=== PATIENT | female | born 2000 | race Caucasian/White ===

== ENCOUNTER 2020-03-23 11:41 | Outpatient (REF) | payer OTHER, SELFPAY ==
[2020-03-23 13:54] LABS: Alanine Aminotransferase 16 U/L (0-31); Albumin Level 4.5 g/dL (3.5-5.0); Alkaline Phosphatase 61 U/L (39-117); Anion Gap 12 (12-20); Aspartate Amino Transferase 11 U/L (5-31); Bilirubin Total 0.8 mg/dL (0.0-1.0); Blood Urea Nitrogen 10 mg/dL (9-16); Carbon Dioxide 27 mmol/L (22-29); Chloride 106 mmol/L (96-108); Cholesterol 173 mg/dL; Estimated Glomerular Filt Rate > 60; Glucose Fasting 86 mg/dL (60-99); HDL Cholesterol 49 mg/dL; LDL Cholesterol Calculated 113 mg/dl; Potassium 4.8 mmol/L (3.3-5.1); Sodium 140 mmol/L (135-145); Total Protein 7.1 g/dL (6.5-8.0); Triglycerides 55 mg/dL
== END 2020-03-23 11:42 | disposition home or self-care (01) ==
LOC: HO.WFDLDS 11:41
PROVIDERS: Visit Provider Family Medicine
DX: Z00.00 Encounter for general adult medical examination without abnormal findings (principal)
CPT/HCPCS: 36415; 80053; 80061; 84443

== ENCOUNTER 2020-04-20 14:30 | Outpatient (REF) | payer OTHER, SELFPAY ==
[2020-04-21 09:15] LABS: CT PCR NOT DETECTED (Not Detect.); NG PCR NOT DETECTED (Not Detect.)
== END 2020-04-20 14:31 | disposition home or self-care (01) ==
LOC: HO.LAB 14:30
PROVIDERS: PCP Family Medicine; Visit Provider Advanced Practice Midwife
DX: Z01.411 Encounter for gynecological examination (general) (routine) with abnormal findings (principal); Z30.013 Encounter for initial prescription of injectable contraceptive; N92.1 Excessive and frequent menstruation with irregular cycle; Z20.2 Contact with and (suspected) exposure to infections with a predominantly sexual mode of transmission
CPT/HCPCS: 81025; 87491; 87591; 88142; 96372; J1050

== ENCOUNTER → 2020-07-13 13:04 | Outpatient (BNVA) | payer OTHER, SELFPAY | PROVIDERS: Visit Provider Advanced Practice Midwife | DX: Z30.9 Encounter for contraceptive management, unspecified (principal) | CPT/HCPCS: 96372; 99211 ==

== ENCOUNTER → 2020-08-24 13:34 | Outpatient (BNVA) | payer OTHER, SELFPAY | PROVIDERS: PCP Family Medicine; Visit Provider Surgery Vascular Surgery | DX: I73.9 Peripheral vascular disease, unspecified (principal) | CPT/HCPCS: 99202 ==

== ENCOUNTER → 2020-11-01 15:06 | Outpatient (BNVA) | payer OTHER, SELFPAY | PROVIDERS: PCP Family Medicine; Visit Provider Advanced Practice Midwife ==

== ENCOUNTER 2021-04-26 12:55 | Outpatient (REF) | payer OTHER, SELFPAY ==
[2021-04-26 15:05] LABS: HCG Quantitative 719 mIU/mL
[2021-04-27 11:36] LABS: CT PCR NOT DETECTED (Not Detect.); NG PCR NOT DETECTED (Not Detect.)
== END 2021-04-26 12:56 | disposition home or self-care (01) ==
LOC: HO.LAB 12:55
PROVIDERS: PCP Family Medicine; Visit Provider Advanced Practice Midwife
DX: Z01.419 Encounter for gynecological examination (general) (routine) without abnormal findings (principal); Z32.01 Encounter for pregnancy test, result positive; Z20.2 Contact with and (suspected) exposure to infections with a predominantly sexual mode of transmission; Z36.87 Encounter for antenatal screening for uncertain dates
CPT/HCPCS: 36415; 81025; 84702; 87491; 87591

== ENCOUNTER 2021-04-29 16:30 | Outpatient (REF) | payer OTHER, SELFPAY ==
[2021-04-29 17:20] LABS: HCG Quantitative 3103 mIU/mL
== END 2021-04-29 16:31 | disposition home or self-care (01) ==
LOC: HO.LAB 16:30
PROVIDERS: PCP Family Medicine; Visit Provider Advanced Practice Midwife
DX: O20.0 Threatened abortion (principal)
CPT/HCPCS: 36415; 84702

== ENCOUNTER 2021-05-06 09:01 | Outpatient (REF) | payer OTHER, SELFPAY ==
--- NOTE | ~2021-05-06 | US_ITS ---
EXAMINATION: OBSTETRICAL ULTRASOUND, FIRST TRIMESTER HISTORY: 21-year-old with positive test Uncertain dates LMP: 04/03/2021 (unsure) COMPARISON: None TECHNIQUE: Real time transabdominal imaging with color and M-mode Doppler. FINDINGS: A single, live IUP CRL of 3.3 mm c/w 6.0wks is noted. Heart Rate: 90 beats per minute. Both maternal ovaries are seen and appear normal. GESTATIONAL AGE: 1. GA from LMP: 4.5 wks 2. GA from AUA: 6.0 wks ESTIMATED DATE OF DELIVERY: 1. TANESHA from LMP: 01/08/2022 2. TANESHA from AUA: 12/30/2021 US/US OB <= 14 weeks fetus IMPRESSION: 1. Single, live IUP 2. CRL consistent with 6.0 weeks of gestation. 3. The best TANESHA is 12/30/2021 based on today's examination. 4. The heart rate is 90 bpm which can be normal given the very early gestation. Suggest a follow-up viability scan in approximately 1-2 weeks. Thank you very much for this referral. This note was generated with a voice recognition program. Please excuse any errors which may have been overlooked during my review of this note. Sometimes these errors may affect the content or meaning of a given sentence.
== END 2021-05-06 09:02 | disposition home or self-care (01) ==
LOC: HO.US 09:01
PROVIDERS: PCP Family Medicine; Visit Provider Advanced Practice Midwife
DX: O26.849 Uterine size-date discrepancy, unspecified trimester (principal)
CPT/HCPCS: 76801

== ENCOUNTER 2021-10-31 15:45 | Outpatient (REF) | payer OTHER, SELFPAY ==
[2021-11-01 12:59] LABS: Influenza A PCR NEGATIVE (Negative); Influenza B PCR NEGATIVE (Negative); Resp Syncy Virus RNA Qual PCR NEGATIVE (Negative); SARS COV2 PCR INHOUSE NEGATIVE (Negative)
== END 2021-10-31 15:46 | disposition home or self-care (01) ==
LOC: HO.LAB 15:45
PROVIDERS: Visit Provider Family Medicine
DX: Z20.822 Contact with and (suspected) exposure to COVID-19 (principal); B34.9 Viral infection, unspecified
CPT/HCPCS: 0241U

== ENCOUNTER 2022-09-14 11:43 | Outpatient (AMB) | payer OTHER, SELFPAY ==
--- NOTE | 2022-09-14 11:54 | A.OFFPC_ITS ---
Vital Signs 09/14/22 11:56 Height 5 ft 8 in Weight 212 lb BMI 32.2 BP 120/68 Blood Pressure Location Lt brachial Pulse 59 Pulse Source Pulse Oximeter Pulse Oximetry (%) 99 Oxygen Delivery Method Room Air Intake Visit Reasons: f/u anxiety/depression Intake Note: Patient is following up on axiety and depression today. Allergies No Known Allergies Allergy (Verified 09/14/22 11:58) Tobacco use date assessed: 09/14/22 Dental Screening Dental Screen Date: 09/14/22 Did you have a dental visit in the last 12 months?: Yes Did you have a dental problem in the last 6 months where you did not have access to dental care?: No Was dental information given to patient?: No HPI f/u anxiety/depression HPI Details 22 y/o female presents to f/u ADHD and anxiety/depression with borderline personality disorder. No known hx of bipolar disorder but had started aripiprazole for moderately severe anxiety/depression and pt had been doing well on this. Had made a referral to psychiatry. She reports Adderall 30mg has been working well for her. She denies any issues with sleep, appetite or increased anxiety. She does note however that she feels her anxiety does not feel controlled on her Abilify 20mg. She does note Abilify has been working for her depression. She states she has an appt. with a therapist but she had missed this. They have not called her back. [facility] Medical History Early stage of Elevated fasting blood sugar Encounter for screening for uncertain dates Surgical History History of hip surgery Hx of wisdom tooth extraction Family History Family/Other Mental health disorder Substance abuse Social History Household Members: Family Housing: Apartment Alcohol intake: current Patient Tobacco Use Status: Never used Tobacco e-Cigarette/Vaping Use: Currently Using Second Hand Smoke Exposure: No service: No Current occupational status: employed Current occupational exposures/hazards: No Sexual orientation: Straight/Heterosexual Gender identity: Female Cognitive needs: No Hearing needs: No Vision needs: No Female Reproductive History Menstrual Age of Menarche: 14 Questionnaire PHQ-9 Over the last 2 weeks, how often have you been bothered by any of the following problems? 1. Little interest or pleasure in doing things: several days 2. Feeling down, depressed, or hopeless: several days 3. Trouble falling or staying asleep, or sleeping too much: not at all 4. Feeling tired or having little energy: not at all 5. Poor appetite or overeating: not at all 6. Feeling bad about yourself - or that you are a failure or have let yourself or your family down: several days 7. Trouble concentrating on things, such as reading the newspaper or watching television: not at all 8. Moving or speaking so slowly that other people could have noticed. Or the opposite - being so fidgety or restless that you have been moving around a lot more than usual: several days 9. Thoughts that you would be better off or of hurting yourself in some way: not at all Total score: 4 Source: Developed by Drs. Edgard Dorado, Teetee Salas, Atif Randolph and colleagues, with an educational sylvia from [employer]. Thrive Questionnaire Date Thrive assessed: 03/06/22 PREMA-7 AMB Questionnaire PREMA-7 Date PREMA - 7 assessed: 03/06/22 Feeling nervous, anxious, or on edge: 3 = Nearly every day Not being able to stop or control worryin = Nearly every day Worrying too much about different things: 3 = Nearly every day Trouble relaxin = Nearly every day Being so restless that it is hard to sit still: 3 = Nearly every day Becoming easily annoyed or irritable: 3 = Nearly every day Feeling afraid as if something awful might happen: 1 = Several days Total PREMA-7 score (0-4 normal; 5-9 mild; 10-14 moderate; 15-21 severe): 19 Source: Developed by Drs. Edgard Dorado, Teetee Salas, Atif Randolph and colleagues, with an educational sylvia from [employer]. Review of Systems Psych Reports anxiety and Reports depression Physical exam (Primary Care) Vital Signs: Last Vital Signs Pulse 59 09/14/22 11:56 BP 120/68 09/14/22 11:56 Pulse Ox 99 09/14/22 11:56 Oxygen Delivery Method Room Air 09/14/22 11:56 BMI result Body Mass Index 32.2 Tobacco/Smoking Status: Tobacco use Status Tobacco use date assessed 09/14/22 09/14/22 12:06 Patient Tobacco Use Status Never used Tobacco 09/14/22 12:06 e-Cigarette/Vaping Use Currently Using 09/14/22 12:06 PHQ-9: PHQ-9 Score PHQ-9: Total score 4 09/14/22 12:47 Thrive Assessment: Date of Thrive Assessment Date Thrive assessed 03/06/22 09/14/22 12:06 Assessment and Plan Assessment & Plan (1) Anxiety with depression: Code(s): F41.8 - Other specified anxiety disorders Plan: Worsened Anxiety on Abilify Missed Therapist Appt - Will ask Nurse Shakir to help her get another appt (2) ADHD (attention deficit hyperactivity disorder): Code(s): F90.9 - Attention-deficit hyperactivity disorder, unspecified type Plan: Patient had been off her medications for some time and we restarted her at a lower dose; 30 mg daily rather than 50 mg daily. She notes that she is currently well controlled on this dose and has no appetite, sleep or anxiety issues from this medication and dose. Continue current medication regimen (3) Borderline personality disorder: Code(s): F60.3 - Borderline personality disorder Plan: Had referred patient to Psychiatry and therapy. She currently has neither Asking nurse navigator to help with a therapist. Will make direct referral to Psychiatry again. Orders: Referrals Nurse Navigator Referral F41.8 - Other specified anxiety disorders, F60.3 - Borderline personality disorder Medications: New buspirone 5 mg PO BID 60 tabs 0RF 30 days Refilled dextroamphetamine-amphetamine 15 mg ER (Adderall XR) Partial Fill upon patient request. 30 mg (2 x 15 mg) PO QAM 60 caps 0RF 30 days aripiprazole (Abilify) 20 mg PO BEDTIME 30 tabs 2RF 30 days Coding Level of Care Code Est Pt Level 3 (37885) Diagnoses Anxiety with depression F41.8 ADHD (attention deficit hyperactivity disorder) F90.9 Borderline personality disorder F60.3
[2022-09-14 11:56] VITALS: BP 120/68; PULSE 59; O2SAT 99; BMI 32.2
== END 2022-09-14 13:02 | disposition home or self-care (01) ==
PROVIDERS: PCP Family Medicine; Visit Provider Family Medicine
DX: F41.8 Other specified anxiety disorders (principal); F90.9 Attention-deficit hyperactivity disorder, unspecified type; F60.3 Borderline personality disorder
CPT/HCPCS: 99213

== ENCOUNTER → 2023-05-17 15:34 | Outpatient (AMB) | payer OTHER, SELFPAY ==
[2023-05-17 15:45] VITALS: BP 122/74; PULSE 56; O2SAT 98; BMI 34.2
--- NOTE | 2023-05-17 15:45 | A.OFFPC_ITS ---
Vital Signs 05/17/23 15:45 Height 5 ft 8 in Weight 225 lb BMI 34.2 BP 122/74 Blood Pressure Location Lt brachial Position Sitting Pulse 56 Pulse Source Pulse Oximeter Pulse Oximetry (%) 98 Oxygen Delivery Method Room Air Intake Visit Reasons: medication follow up Intake Note: Patient is here with follow up for med refills, on Adderall, Buspirone, and Abilify. Allergies No Known Allergies Allergy (Verified 09/14/22 11:58) Medication List - Last Reconciled 05/17/23 by Martínez Hernandez MD albuterol sulfate 90 mcg/actuation (Ventolin HFA) 1 inh inhalation QID PRN 30 days aripiprazole (Abilify) 20 mg PO BEDTIME 30 days buspirone 5 mg PO BID 30 days dextroamphetamine-amphetamine 15 mg ER (Adderall XR) 30 mg (2 x 15 mg) PO QAM 30 days Tobacco use date assessed: 05/17/23 Dental Screening Dental Screen Date: 05/17/23 Did you have a dental visit in the last 12 months?: No Did you have a dental problem in the last 6 months where you did not have access to dental care?: No Was dental information given to patient?: Yes HPI medication follow up HPI Details Pt presents to f/u anxiety and depression. Had been taking Abilify which has helped significantly with depression but had still been having worsened anxiety. Had started her on buspirone. Pt scores significantly high on her anxiety/depression questionnaires. PHQ-9 24 and PREMA-7 21 today. She denies any SI/HI. She notes she had lost her insurance for awhile and had not been on her medication regimen. She had recently just gotten insurance back recently - she does not have a therapist right now. She notes she had just started a new job which should help her more financially. She reports her mother had been diagnosed with a blood clotting disorder. [facility] Medical History Early stage of Encounter for screening for uncertain dates Elevated fasting blood sugar Surgical History Hx of wisdom tooth extraction History of hip surgery Family History Family/Other Mental health disorder Substance abuse Social History Household Members: Family Housing: Apartment Alcohol intake: current Patient Tobacco Use Status: Never used Tobacco e-Cigarette/Vaping Use: Currently Using Second Hand Smoke Exposure: No service: No Current occupational status: employed Current occupational exposures/hazards: No Sexual orientation: Straight/Heterosexual Gender identity: Female Cognitive needs: No Hearing needs: No Vision needs: No Female Reproductive History Menstrual Age of Menarche: 14 Questionnaire PHQ-9 Over the last 2 weeks, how often have you been bothered by any of the following problems? 1. Little interest or pleasure in doing things: nearly every day 2. Feeling down, depressed, or hopeless: nearly every day 3. Trouble falling or staying asleep, or sleeping too much: nearly every day 4. Feeling tired or having little energy: nearly every day 5. Poor appetite or overeating: nearly every day 6. Feeling bad about yourself - or that you are a failure or have let yourself or your family down: nearly every day 7. Trouble concentrating on things, such as reading the newspaper or watching television: nearly every day 8. Moving or speaking so slowly that other people could have noticed. Or the opposite - being so fidgety or restless that you have been moving around a lot more than usual: nearly every day 9. Thoughts that you would be better off or of hurting yourself in some way: not at all Total score: 24 Depression Screening Interpretation: Positive Depression Screening Done: Yes 45661 - PHQ-9 Billing: Yes Source: Developed by Drs. Edgard Dorado, Teetee Salas, Atif Randolph and colleagues, with an educational sylvia from [employer]. Thrive Questionnaire Date Thrive assessed: 05/17/23 I am a: Patient What is your living situation today?: I have a steady place to live Within the past 12 months, did the food you bought not last and you didn't have the money to get more?: Often true Within the past 12 months, did you worry whether your food would run out before you got money to buy more?: Often true Do you have trouble paying for medicines?: No Do you have trouble getting transportation to medical appointments?: No Do you have trouble paying your heating and electricity bill?: No Do you have trouble taking care of your child, family member or friend?: No Do you have trouble with day-to-day activities such as bathing, preparing meals, shopping, managing finances, etc.?: No Are you currently unemployed and looking for a job?: No Are you interested in more education?: No THRIVE Score: 2 AUDIT C Alcohol Use Questionnaire (AUDIT-C) 1. How often do you have a drink containing alcohol?: 4 or more times a week 2. How many drinks containing alcohol do you have on a typical day when you are drinking?: 5 or 6 3. How often do you have six or more drinks on one occasion?: Never Total Score: 6 PREMA-7 AMB Questionnaire PREMA-7 Date PREMA - 7 assessed: 05/17/23 Feeling nervous, anxious, or on edge: 3 = Nearly every day Not being able to stop or control worryin = Nearly every day Worrying too much about different things: 3 = Nearly every day Trouble relaxin = Nearly every day Being so restless that it is hard to sit still: 3 = Nearly every day Becoming easily annoyed or irritable: 3 = Nearly every day Feeling afraid as if something awful might happen: 3 = Nearly every day Total PREMA-7 score (0-4 normal; 5-9 mild; 10-14 moderate; 15-21 severe): 21 Source: Developed by Drs. Edgard Dorado, Teetee Salas, Atif Randolph and colleagues, with an educational sylvia from [employer]. PREMA-7 Assessment Billing PREMA-7 Assessment Tool: PREMA-7 Assessment 54413 Review of Systems Const Denies chills, Denies fatigue, Denies fever(s), Denies headache(s) and Denies weakness ENT Denies dizziness and Denies headache(s) Card Denies chest pain, Denies lightheadedness, Denies dyspnea and Denies other (Palpitations) Resp Denies cough, Denies dyspnea, Denies wheezing and Denies other ( shortness of breath) Musc Denies numbness and Denies tingling Neuro Denies dizziness, Denies headache(s), Denies numbness, Denies tingling, Denies paresthesias and Denies weakness Psych Denies anxiety and Denies depression Endo Denies fatigue Aller/Immun Denies wheezing Physical exam (Primary Care) Vital Signs: Last Vital Signs Pulse 56 05/17/23 15:45 BP 122/74 05/17/23 15:45 Pulse Ox 98 05/17/23 15:45 Oxygen Delivery Method Room Air 05/17/23 15:45 BMI result Body Mass Index 34.2 Tobacco/Smoking Status: Tobacco use Status Tobacco use date assessed 05/17/23 05/17/23 15:59 Patient Tobacco Use Status Never used Tobacco 05/17/23 15:59 e-Cigarette/Vaping Use Currently Using 05/17/23 15:59 PHQ-9: PHQ-9 Score PHQ-9: Total score 05/17/23 15:59 Depression Screening Interpretation: Positive Thrive Assessment: Date of Thrive Assessment Date Thrive assessed 05/17/23 05/17/23 15:59 Const General: no acute distress and well developed Nutritional Appearance: well nourished Orientation/consciousness: patient oriented x3 HENMT Head: Yes normocephalic and Yes atraumatic Eyes General: appearance normal, both eyes and all related structures Pupils: Equal, round and reactive pupils present EOM: EOMs intact bilaterally Resp Effort & Inspection: normal respiratory effort Auscultation: clear to auscultation bilaterally Cardio Rate: regular rate Rhythm: regular rhythm Heart sounds: S1 normal heart sound present, S2 normal heart sound present, no gallops, no murmurs and no rubs Neuro General: patient oriented x3 and gait normal Cranial nerves: Yes Equal, round and reactive pupils present Psych Affect: normal affect Assessment and Plan Assessment & Plan (1) Anxiety with depression: Code(s): F41.8 - Other specified anxiety disorders Plan: Significant?anxiety?and?depression She?has?been?off?of?her?medications?due?to?lack?of?insurance?but?now?has?insuran ce?again. Will?resume?buspirone?and?Abilify Will?refer?her?to?the?nurse?navigator?for?referral?to?a?therapist?and?also?to?ev aluate?for?services?due?to?housing?instability?and?financial?difficulties. (2) Family history of factor V Leiden mutation: Code(s): Z83.2 - Family history of diseases of the blood and blood-forming organs and certain disorders involving the immune mechanism Plan: Mom?diagnosed?with?factor?5?Leiden?mutation. Will?check?this?for?patient?as?well.??If?positive?will?refer (3) ADHD (attention deficit hyperactivity disorder): Code(s): F90.9 - Attention-deficit hyperactivity disorder, unspecified type Plan: Resume?Adderall Will?follow-up?at?next?visit (4) Borderline personality disorder: Code(s): F60.3 - Borderline personality disorder Plan: As?above,?resuming?her?Abilify (5) Smoking: Code(s): F17.200 - Nicotine dependence, unspecified, uncomplicated Plan: Patient?recently?quit?smoking?and?I?encouraged?abstinence Orders: Orders Comprehensive [place]. Panel Fast Today Z00.00 - Encounter for general adult medical examination without abnormal findings Complete Blood Count Auto Diff Today Z00.00 - Encounter for general adult medical examination without abnormal findings UA and rflx microscopic Today Z00.00 - Encounter for general adult medical examination without abnormal findings Lipid Panel Today Z00.00 - Encounter for general adult medical examination without abnormal findings Microalbumin, Random (w Creat) Today I10 - Essential (primary) hypertension TSH reflex Free T4 Today Z00.00 - Encounter for general adult medical examination without abnormal findings Factor V Leiden Today Z83.2 - Family history of diseases of the blood and blood-forming organs and certain disorders involving the immune mechanism Referrals Nurse Navigator Referral F41.8 - Other specified anxiety disorders, Z59.819 - Housing instability, housed unspecified Medications: Refilled dextroamphetamine-amphetamine 15 mg ER (Adderall XR) Partial Fill upon patient request. 30 mg (2 x 15 mg) PO QAM 30 days 60 caps 0RF albuterol sulfate 90 mcg/actuation (Ventolin HFA) 1 inh inhalation QID 30 days PRN 8.5 grams 4RF shortness of breath or wheezing buspirone 5 mg PO BID 30 days 60 tabs 0RF aripiprazole (Abilify) 20 mg PO BEDTIME 30 days 30 tabs 2RF Coding Level of Care Code Est Pt Level 4 (84345) Diagnoses Anxiety with depression F41.8 Family history of factor V Leiden mutation Z83.2 ADHD (attention deficit hyperactivity disorder) F90.9 Borderline personality disorder F60.3 Smoking F17.200 Additional Codes PREMA-7 Assessment Billing - PREMA-7 Assessment Tool: PREMA-7 Assessment [id number] ([id number])
== END ==
PROVIDERS: PCP Family Medicine; Visit Provider Family Medicine
DX: F90.9 Attention-deficit hyperactivity disorder, unspecified type (principal); F41.8 Other specified anxiety disorders; Z83.2 Family history of diseases of the blood and blood-forming organs and certain disorders involving the immune mechanism; F60.3 Borderline personality disorder; F17.200 Nicotine dependence, unspecified, uncomplicated
CPT/HCPCS: 96127; 99214

== ENCOUNTER 2023-07-13 12:49 | Outpatient (AMB) | payer OTHER, SELFPAY ==
--- NOTE | 2023-07-13 12:57 | MHC.PC.OV ---
Vital Signs 07/13/23 13:00 Height 5 ft 8 in Weight 215 lb 2 oz BMI 32.7 BP 118/80 Blood Pressure Location Rt brachial Pulse 85 Pulse Source Pulse Oximeter Pulse Oximetry (%) 97 Oxygen Delivery Method Room Air Intake Visit Reasons: CPE Follow up labs Intake Note: Patient is here for her physical, and stopped taling her antipsycotics because they were never filled. Allergies No Known Allergies Allergy (Verified 07/13/23 13:01) Medication List - Last Reconciled 07/13/23 by Martínez Hernandez MD albuterol sulfate 90 mcg/actuation (Ventolin HFA) 1 inh inhalation QID PRN 30 days buspirone 5 mg PO BID 30 days Tobacco use date assessed: 07/13/23 Dental Screening Dental Screen Date: 05/17/23 HPI CPE Follow up labs HPI Details 23 y/o female presents for a CPE with f/u labs and health maintenance. Hx of borderline personality disorder and anxiety/depression. No recent labs to review. She states she has not been taking her Adderall as insurance did not approve the 15mg. Pt reports ongoing back flare-ups and states she does have degenerative disc disease. HPI Comments History of Present Illness Details Documentation assistance for Martínez Hernandez MD, was provided by Garo Tai, Director Of Officiating on 07/13/2023 at 1:20 PM EST. I, Dr. Hernandez, have read, observed, and verified documentation. [facility] Medical History Early stage of Encounter for screening for uncertain dates Elevated fasting blood sugar Surgical History Hx of wisdom tooth extraction History of hip surgery Family History Family/Other Mental health disorder Substance abuse Social History Household Members: Family Housing: Apartment Alcohol intake: current Patient Tobacco Use Status: Never used Tobacco e-Cigarette/Vaping Use: Currently Using Second Hand Smoke Exposure: No service: No Current occupational status: employed Current occupational exposures/hazards: No Sexual orientation: Straight/Heterosexual Gender identity: Female Cognitive needs: No Hearing needs: No Vision needs: No Female Reproductive History Menstrual Age of Menarche: 14 Questionnaire Thrive Questionnaire Date Thrive assessed: 05/17/23 PREMA-7 AMB Questionnaire PREMA-7 Date PREMA - 7 assessed: 05/17/23 Source: Developed by Drs. Edgard Dorado, Teetee Salas, Atif Randolph and colleagues, with an educational sylvia from [employer]. Review of Systems Const Denies chills, Denies fatigue, Denies fever(s), Denies headache(s) and Denies weakness Eyes Denies change in vision ENT Denies dizziness, Denies headache(s), Denies hearing loss, Denies nasal congestion, Denies sinus pain, Denies sinus pressure and Denies sore throat Card Denies chest pain, Denies lightheadedness, Denies dyspnea and Denies other (palpitations) Resp Denies cough, Denies dyspnea and Denies wheezing GI Denies abdominal pain, Denies melena, Denies hematochezia, Denies change in bowel habits, Denies dyspepsia and Denies nausea Denies hematuria and Denies dysuria Musc Denies abnormal gait, Denies myalgias, Denies arthralgias, Denies numbness and Denies tingling Skin/Breast Denies rash, Denies unusual bruising and Denies wounds Neuro Denies abnormal gait, Denies dizziness, Denies headache(s), Denies memory loss, Denies numbness, Denies Sensory deficit (Neuro), Denies tingling and Denies weakness Psych Reports anxiety, Reports depression and Denies memory loss Endo Denies cold intolerance, Denies fatigue, Denies heat intolerance, Denies polydipsia and Denies polyuria Jeronimo/Lymph Denies easy bleeding and Denies easy bruising Aller/Immun Denies wheezing Physical exam (Primary Care) Vital Signs: Last Vital Signs Pulse 85 07/13/23 13:00 BP 118/8 L 07/13/23 13:00 Pulse Ox 97 07/13/23 13:00 Oxygen Delivery Method Room Air 07/13/23 13:00 BMI result Body Mass Index 32.7 Tobacco/Smoking Status: Tobacco use Status Tobacco use date assessed 07/13/23 07/13/23 13:02 Patient Tobacco Use Status Never used Tobacco 07/13/23 12:58 e-Cigarette/Vaping Use Currently Using 07/13/23 12:58 Thrive Assessment: Date of Thrive Assessment Date Thrive assessed 05/17/23 07/13/23 12:58 Const General: no acute distress, well developed, alert and awake Nutritional Appearance: well nourished Orientation/consciousness: patient oriented x3 [facility] Head: Yes normocephalic and Yes atraumatic Ears: hearing grossly normal bilaterally and TM's normal bilaterally General nose exam: Normal external nose present and Normal nares present Mouth: Normal oral and palatal mucosa present and moist mucous membranes Teeth and gingiva: dentition normal Throat: Yes posterior oropharynx normal Eyes General: appearance normal, both eyes and all related structures Pupils: Equal, round and reactive pupils present and Pupil accommodation reflex normal EOM: EOMs intact bilaterally Neck Neck: Yes normal visual inspection, Yes no lymphadenopathy and Yes trachea midline Thyroid: Thyroid normal Carotids: no bruits Lymphatic: no lymphadenopathy noted Chest Chest palpation & inspection: normal inspection of the chest Resp Effort & Inspection: normal respiratory effort Auscultation: clear to auscultation bilaterally Cardio Rate: regular rate Rhythm: regular rhythm Heart sounds: S1 normal heart sound present, S2 normal heart sound present, no gallops, no murmurs and no rubs Bruits: no abdominal aortic bruits and no carotid bruits GI Palpation (GI): No Abdominal aortic bruit present, Soft to palpation, nontender, No hepatosplenomegaly present and No Rebound tenderness present Auscultation: normal bowel sounds General: Yes no CVA tenderness Back/Spine/Pelvis Back: no CVA tenderness Cervical Spine: cervical ROM normal and No Cervical spine tenderness Thoracic/Lumbar Spine: thoraco-lumbar ROM normal, No pain with thoraco-lumbar ROM, No thoracic spinal tenderness and No lumbar spinal tenderness Skin Lesions: no lesions Rashes: no rashes Trauma: no lacerations or abrasions Wounds: no wounds Nails: normal Neuro General: patient oriented x3 Cranial nerves: Yes Equal, round and reactive pupils present Cognition (Neuro): normal cognition Gait exam (Neuro): Normal gait present Motor exam (neuro): 5/5 motor strength present throughout Sensory Exam: No Sensory deficit (Neuro) Deep tendon reflexes (DTR's): Right patellar reflex intensity grade: 2+ and Left patellar reflex intensity grade: 2+ Extrem General: Yes normal to inspection and No edema Psych Appearance: grossly normal Affect: No normal affect (irritable affect) Attitude: cooperative Thought process: Normal thought process present Assessment and Plan Assessment & Plan (1) Adult general medical exam: Code(s): Z00.00 - Encounter for general adult medical examination without abnormal findings (2) ADHD (attention deficit hyperactivity disorder): Code(s): F90.9 - Attention-deficit hyperactivity disorder, unspecified type Plan: Had?been?unable?to?get?Adderall?due?to?insurance?not?paying?for 15?mg?x2?per?day Switched?to?Adderall?XR?30?mg?daily (3) Degenerative disc disease: Plan: Significant?back?pain?and?history?of?degenerative?disc Has?used?steroids?in?the?past?which?have?helped?significantly. Will?refer?her?to?physiatry?to?consider?injection?therapy. Can?also?start?physical?therapy?at?[facility]?per?employment security officer?order (4) Sleep apnea: Code(s): G47.30 - Sleep apnea, unspecified Plan: Referred?to?Sleep?Medicine (5) Anxiety with depression: Code(s): F41.8 - Other specified anxiety disorders Plan: Ongoing?anxiety?and?depression?in?patient?with?bipolar?disorder She?felt?that?the?Abilify?helped?her?but?made?her?feel?jittery Switch?to?Seroque Continue?buspirone?l (6) Screening for cervical cancer: Code(s): Z12.4 - Encounter for screening for malignant neoplasm of cervix Plan: [facility]and[facility]?have?called?her?to?schedule?her?next?Pap?smear Follow-up?as?recommended (7) Borderline personality disorder: Code(s): F60.3 - Borderline personality disorder Plan: As?above,?starting?Seroquel (8) Raynaud phenomenon: Code(s): I73.00 - Raynaud's syndrome without gangrene Plan: Hydrate?well Keep?hands?and?feet?warm Orders: Referrals Physiatry Referral M54.9 - Dorsalgia, unspecified Sleep Medicine Referral G47.30 - Sleep apnea, unspecified Medications: New quetiapine (Seroquel) 50 mg PO BEDTIME 30 days 30 tabs 1RF dextroamphetamine-amphetamine 30 mg ER (Adderall XR) MassPat Verified. Partial Fill upon patient request. 30 mg PO QAM 30 days 30 caps 0RF F90.9 - Attention-deficit hyperactivity disorder, unspecified type Coding Level of Care Code Est Pt Level 3 (78347) Est Pt Prev Care 18-39y(55280) Diagnoses Adult general medical exam Z00.00 ADHD (attention deficit hyperactivity disorder) F90.9 Degenerative disc disease Sleep apnea G47.30 Anxiety with depression F41.8 Screening for cervical cancer Z12.4 Borderline personality disorder F60.3 Raynaud phenomenon I73.00
[2023-07-13 13:00] VITALS: BP 118/80; PULSE 85; O2SAT 97; BMI 32.7
== END 2023-07-13 13:46 | disposition home or self-care (01) ==
PROVIDERS: PCP Family Medicine; Visit Provider Family Medicine
DX: Z00.00 Encounter for general adult medical examination without abnormal findings (principal); F60.3 Borderline personality disorder; F90.9 Attention-deficit hyperactivity disorder, unspecified type; G47.30 Sleep apnea, unspecified; F41.8 Other specified anxiety disorders; I73.00 Raynaud's syndrome without gangrene
CPT/HCPCS: 99213; 99395

== ENCOUNTER 2023-12-07 16:08 | Outpatient (AMB) | payer OTHER, SELFPAY ==
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
[2023-12-07 16:13] VITALS: BP 105/55; PULSE 104; RESP 16; TEMP 36.6; O2SAT 97; BMI 30.2
== END 2023-12-07 16:39 | disposition home or self-care (01) ==
LOC: HO.HMCFM 16:09
PROVIDERS: PCP Family Medicine; Visit Provider Family Medicine
DX: F41.8 Other specified anxiety disorders (principal); F60.3 Borderline personality disorder; F90.9 Attention-deficit hyperactivity disorder, unspecified type; S06.0XAA Concussion with loss of consciousness status unknown, initial encounter; R51.9 Headache, unspecified; Z91.410 Personal history of adult physical and sexual abuse

== ENCOUNTER → 2023-12-07 16:08 | Outpatient (BNVA) | payer OTHER, SELFPAY | PROVIDERS: PCP Family Medicine; Visit Provider Family Medicine | DX: F41.8 Other specified anxiety disorders (principal); F60.3 Borderline personality disorder; F90.9 Attention-deficit hyperactivity disorder, unspecified type; R51.9 Headache, unspecified; S06.0XAA Concussion with loss of consciousness status unknown, initial encounter; Z91.410 Personal history of adult physical and sexual abuse | CPT/HCPCS: 96127; 99212 ==

== ENCOUNTER 2023-12-18 10:56 | Outpatient (REF) | payer OTHER, SELFPAY ==
[2023-12-18 14:12] LABS: Appearance Urine Cloudy; Color Urine Dark Yellow; Glucose Urine UA Negative (Negative); Leukocyte Esterase Urine Small (1+) (Negative); Nitrite Urine Negative (Negative); PH 6.5 (5.0-9.0); Specific Gravity - Urine 1.025 (1.005-1.025); UMIC TRIGGER UA YES; Urine Blood Negative (Negative); Urine Ketones Negative (Negative); Urine Protein Trace mg/dL (Neg-Trace)
[2023-12-18 14:16] LABS: MANUAL DIFF FLAG NO
[2023-12-18 14:20] LABS: Bacteria Urine 4+ (None Seen); Squamous Epithelial Cell Urine >20 /HPF (0-2); WBC Urine 21-50 /HPF (0-5)
[2023-12-18 14:24] LABS: Basophils Percent Auto 0.6 % (0-2); Eosinophils Absolute Auto 0.3 X10*3/uL (0.0-0.4); Eosinophils Percent Auto 3.7 % (0-4); Hematocrit 40.5 % (37.0-47.0); Hemoglobin 13.9 g/dl (12.0-16.0); Imm Gran Abs Auto 0.01 X10*3/uL (0.00-0.03); Imm Gran Pct Auto 0.1 % (0.0-0.4); Lymphocytes Percent Auto 44.5 % (20-40); Mean Corpuscular HGB Conc 34.3 g/dl (31.0-35.0); Mean Corpuscular Hemoglobin 31.6 pg (27.0-33.0); Mean Platelet Volume 9.5 fL (9.4-12.3); Monocytes Absolute Auto 0.4 X10*3/uL (0.1-1.2); Monocytes Percent Auto 5.2 % (2-11); Neutrophils Absolute Auto 3.1 x10*3/uL (2.0-8.3); Neutrophils Percent Auto 45.9 % (45-73); Platelet Count 299 X10*3/uL (160-400); Red Cell Distribution Width 12.6 % (11.0-16.0); White Blood Count 6.7 X10*3/uL (4.8-10.8)
[2023-12-18 15:07] LABS: Alanine Aminotransferase 28 U/L (0-31); Albumin Level 4.2 g/dL (3.5-5.0); Alkaline Phosphatase 48 U/L (39-117); Anion Gap 12 (12-20); Aspartate Amino Transferase 26 U/L (5-31); Bilirubin Total 0.8 mg/dL (0.0-1.0); Blood Urea Nitrogen 6 mg/dL (9-16); Calcium 9.4 mg/dL (8.4-10.2); Carbon Dioxide 21 mmol/L (22-29); Chloride 110 mmol/L (96-108); Cholesterol 182 mg/dL (<200); Estimated Glomerular Filt Rate > 60; Glucose Fasting 95 mg/dL (60-99); HDL Cholesterol 44 mg/dL (>40); LDL Cholesterol Calculated 117 mg/dL (<100); Potassium 4.1 mmol/L (3.3-5.1); Sodium 139 mmol/L (135-145); TSH reflex Free T4 0.88 uIU/mL (0.32-4.0); Total Protein 7.3 g/dL (6.5-8.0); Triglycerides 106 mg/dL (<150); Vitamin D 25-OH Total 28.6 ng/mL (>30)
[2023-12-18 15:09] LABS: Creatinine Urine 221.88 mg/dL; Microalbum/Creatinine Ratio Ur 5.4 ug/mg cr (<30)
[2023-12-18 15:11] LABS: Erythrocyte Sedimentation Rate 12 MM/HR (0-20)
[2023-12-18 15:13] LABS: Folate 5.3 ng/mL (> or = 4.0); Vitamin B12 345 pg/mL (200-900)
[2023-12-26 18:23] LABS: Factor V Leiden POSITIVE
== END 2023-12-18 10:57 | disposition home or self-care (01) ==
LOC: HO.WFDLDS 10:56
PROVIDERS: Visit Provider Family Medicine
DX: Z00.00 Encounter for general adult medical examination without abnormal findings (principal); I10 Essential (primary) hypertension; Z83.2 Family history of diseases of the blood and blood-forming organs and certain disorders involving the immune mechanism; G47.30 Sleep apnea, unspecified; E53.8 Deficiency of other specified B group vitamins; E55.9 Vitamin D deficiency, unspecified; M54.9 Dorsalgia, unspecified
CPT/HCPCS: 36415; 80053; 80061; 81001; 81241; 82043; 82306; 82570; 82607; 82746; 84443; 85025; 85652

== ENCOUNTER 2024-01-11 09:08 | Outpatient (AMB) | payer OTHER, SELFPAY ==
--- NOTE | 2024-01-11 09:05 | MHC.PC.OV ---
Intake Visit Reasons: f/u labs via telemedicine Intake Note: lab review Allergies No Known Allergies Allergy (Verified 01/11/24 09:05) Medication List - Last Reconciled 01/11/24 by Martínez Hernandez MD Adderall XR 30 mg (dextroamphetamine-amphetamine) 30 mg PO QAM 30 days NS Tobacco use date assessed: 07/13/23 Dental Screening Dental Screen Date: 05/17/23 HPI f/u labs via telemedicine HPI Details 23 y/o female presents to f/u labs via telemedicine. FHx of factor 5 leiden. Checking sed rate due to chronic back pain. Had referred her back to physiatry for back pain. [place] [facility] [place] for multiple psychiatric issues. Labs drawn 12/18/23. Reviewed labs with pt. Triglycerides 106. TC 182. LDL 117. HDL 44. Vitamin D low at 28.6. 4+ urine bacteria seen. Reports she had BV and had a prescription from her ObGyn but she notes this had . She denies any urinary symptoms. She reports she has been having difficulty obtaining her adderall. [facility] Medical History Early stage of Encounter for screening for uncertain dates Elevated fasting blood sugar Surgical History Hx of wisdom tooth extraction History of hip surgery Family History Family/Other Mental health disorder Substance abuse Social History Household Members: Family Housing: Apartment Alcohol intake: current Patient Tobacco Use Status: Never used Tobacco e-Cigarette/Vaping Use: Currently Using Second Hand Smoke Exposure: No service: No Current occupational status: employed Current occupational exposures/hazards: No Sexual orientation: Straight/Heterosexual Gender identity: Female Cognitive needs: No Hearing needs: No Vision needs: No Female Reproductive History Menstrual Age of Menarche: 14 Questionnaire Thrive Questionnaire Date Thrive assessed: 05/17/23 PREMA-7 AMB Questionnaire PREMA-7 Date PREMA - 7 assessed: 05/17/23 Source: Developed by Drs. Edgard Dorado, Teetee B.W. Atif Salas and colleagues, with an educational sylvia from [employer]. Physical exam (Primary Care) Tobacco/Smoking Status: Tobacco use Status Tobacco use date assessed 07/13/23 01/11/24 09:07 Patient Tobacco Use Status Never used Tobacco 01/11/24 09:07 e-Cigarette/Vaping Use Currently Using 01/11/24 09:07 Thrive Assessment: Date of Thrive Assessment Date Thrive assessed 05/17/23 01/11/24 09:07 Telehealth Telehealth Telehealth Platform: Telephone Location of provider rendering services: practice address Location of patient: address on file Patient Identification confirmed using: Name, : Yes Telehealth method: voice only Patient verbally consented to treatment: Yes Patient verbally consented to billing insurance company: Yes Patient informed of any privacy concerns related to visit: Yes Minutes spent on Phone/Video with Pt.: 10 Coding Level of Care Code Tele Est Pt Level 2 (06168) Diagnoses Heterozygous factor V Leiden mutation D68.51 Elevated LDL cholesterol level E78.00 Bacteria in urine R82.71 ADHD (attention deficit hyperactivity disorder) F90.9 Assessment & Plan Assessment & Plan (1) Heterozygous factor V Leiden mutation: Code(s): D68.51 - Activated protein C resistance Category: Medical Plan: Testing shows that she is heterozygous for the Factor V Leiden variant in the Factor V gene, giving her a 3-8-fold increased risk for venous thrombosis (blood clots). I recommend that if she is smoking she discontinue this and I recommend she avoid unneccesary estrogen/hormonal treatments. I am referring her to Hematology-Oncology. In addition, other family members may also be carriers of the variant and similarly at risk so they should consider genetic counseling and DNA testing. (2) Elevated LDL cholesterol level: Code(s): E78.00 - Pure hypercholesterolemia, unspecified Category: Medical Plan: LDL?cholesterol?is?too?high Advised?diet?lower?in?saturated?fats?and?cholesterol (3) Bacteria in urine: Code(s): R82.71 - Bacteriuria Category: Medical Plan: Patient?says?she?was?recently?told?she?had?BV?and?was?given?medication?by?her?rubber stamp assembler She?will?contact?her She?will?let?me?know?if?he?is?symptoms?UTI (4) ADHD (attention deficit hyperactivity disorder): Code(s): F90.9 - Attention-deficit hyperactivity disorder, unspecified type Category: Medical Plan: Patient?says?she?has?had?difficulty?getting?her?Adderall Appears?that?medical?medical assistant?discontinued?Adderall?prior?visit. This?medication?can?continue.??I?have?resent?it Orders: Orders Comprehensive Mcgill. Panel Fast Today E78.00 - Pure hypercholesterolemia, unspecified, Z00.00 - Encounter for general adult medical examination without abnormal findings Lipid Panel Today E78.00 - Pure hypercholesterolemia, unspecified, Z00.00 - Encounter for general adult medical examination without abnormal findings Medications: Refilled Adderall XR 30 mg (dextroamphetamine-amphetamine) MassPat Verified. Partial Fill upon patient request. 30 mg PO QAM 30 days 30 caps 0RF NS F90.9 - Attention-deficit hyperactivity disorder, unspecified type
== END 2024-01-11 13:36 | disposition home or self-care (01) ==
LOC: HO.HMCFM 09:08
PROVIDERS: PCP Family Medicine; Visit Provider Family Medicine
DX: D68.51 Activated protein C resistance (principal); E78.00 Pure hypercholesterolemia, unspecified; R82.71 Bacteriuria; F90.9 Attention-deficit hyperactivity disorder, unspecified type

== ENCOUNTER 2024-04-11 09:18 | Outpatient (REF) | payer OTHER, SELFPAY ==
--- OUTSIDE RECORDS SUMMARY | 2024-04-11 17:33 | XMS_ITS | Clinical Summary ---
Author Organization [facility] Address [address] [place] [address] Phone Care Team Providers Care Recreation Teacher Name Role Phone Unavailable Primary Care Provider Unavailabl e Allergies No known active allergies Medications medroxyPROGESTERon e 150 MG/ML injectionIndicatio ns:Metrorrhagia Inject 1 mL (150 mg total) into the muscle every 3 (three) months. 1 mL 4 0 Active amphetamine-dextro amphetamine (Adderall) 30 MG tabletIndications: ADHD, predominantly inattentive type Take 1 tablet (30 mg total) by mouth every morning. With 20 mg to equal 50 mg daily 30 tablet 0 Active amphetamine-dextro amphetamine XR (Adderall XR) 20 MG 24 hr capsuleIndications :ADHD, predominantly inattentive type Take 1 capsule (20 mg total) by mouth every morning. 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 next month Dysmenorrhea 01/05/2017 Generalized anxiety disorder 01/05/2017 Overview (09/04/2019): [facility]2013, didn't continue. [facility] referral 08/18 for oppositional behavior and anxiety as well as substance abuse and stealing. changed to [facility] for counselling - Luis Daniel Luna [facility] 08/2019, consideration to change diagnosis to borderline disorder Assessment & Plan (10/24/2018 2:54 PM EDT): No current issues with anxiety. Recognizes now how external factors are playing a role in current motivation High triglycerides 07/19/2015 Overview (02/14/2018): Lipid panel, metabolic panel and TFTs ordered 01/22,not done Resolved Problems Problem Noted Date Diagnosed Date Resolved Date Pediatric body mass index (B MS) of greater than or equal to 95th percentile for age 0607/19/2015 01/31/2018 Immunizations Immunization Administration Dates Next Due DTaP 02/09/2004, 1,1999,05/15,1999 HPV, Quadrivalent 07/16/2014,06/05/2013,05/31/19 13 Hep A, Adult 01/31/2018 Hep A, ped/adol 01/05/2017 Hep B, ped/adol 1999,1999,1999 Hib (PRP-T) 05/15/2000,1999,1999 IPV 02/09/2004, 0,1999,03/21 Influenza, injectable, quadr ivalent, preservative free 12/06/2017 MMR 04/03/2003,01/18/2000 Meningococcal Conj (Menactra) MCV4P 07/19/2015,0 05/12/2011 Pneumococcal Conjugate 01/17/2002,1999,12/1999 Tdap 05/12/2011 Varicella 12/17/2008,01/18/2000 Family History Medical History Relation Name Comments Diabetes Maternal Grandfather Lung cancer Maternal Grandfather Heart disease Maternal Grandmother Asthma Mother Relation Name Status Comments Father 2018 Father's Sister Alive Maternal Grandfather Maternal Grandmother MS, aor tic dissection Mother Alive Paternal Grandfather Alive respira tory issues Paternal Grandmother Alive Social History Tobacco Use Types Packs/Day Years Used Date Smoking Tobacco: Never Smokeless Tobacco: Never Alcohol Use Standard Drinks/Week Comments No 0 (1 standard drink = 0.6 oz pur e alcohol) Hunger/Food Answer Date Recorded In the last 12 months, did y ou or your family ever eat less than you felt you should because there wasn't enough money for food? No 02/27/2019 Stable Housing Answer Date Recorded Are you worried that in the next 2 months you may not have stable housing? No 02/27/2019 Transportation Concerns Answer Date Rec orded In the last 12 months, have you or your family ever had to go without healthcare because you didn't have a way to get there? No 02/27/2019 Hazards in Home Answer Date Recorded Think about the place you li ve. Do you have problems with any of the following? Pests (mice or roaches), mold, no/not working smoke detectors, water leaks, no window guards. No 2019 Financing Utilities Answer Date Recorde d In the last 12 months, has t he electric, gas, oil, or water company threatened to shut off your services in your home? No 02/27/2019 Safety at Home Answer Date Recorded Are you or your family worried about feeling saf e in your home? No 02/27/2019 Outside Support Answer Date Recorded Do you feel that you need mo re support from other people or programs to help you care for yourself or your family? No 02/27/2019 Understanding Health Concerns Answer Da te Recorded Do you need help understandi ng your or your child's healthcare needs (diagnosis, medications, plan, etc.)? No 02/27/2019 Financing Health Concerns Answer Date R ecorded In the last 12 months, was t here a time when your child needed to see a doctor or get medications or supplies but could not because of cost? No 02/27/2019 Missing School or Work Answer Date Moo rded Did you or your child miss s chool or work because of a health problem that could have been avoided? No 02/27/2019 Comments No Sex and Gender Information Value Date Recorded Sex Assigned at Not on file Legal Sex Female 6:21 PM EDT Gender Identity Not on file Sexual Orientation Not on file Last Filed Vital Signs Vital Sign Reading Time Taken Comments Blood Pressure 118/72 08/07/2019 3:57 PM EDT Pulse 109 07/27/2016 12:00 AM EDT Temperature 36.8 ??C (98.2 ??F) 08/07/2019 3:57 PM ED T Respiratory Rate - - Oxygen Saturation 97% 07/27/2016 12:00 AM EDT Inhaled Oxygen Concentration - - Weight 86 kg (189 lb 8 oz) 11/25/2019 12:58 PM E DT Height 173.4 cm (5' 8.25 ) 11/25/2019 12:58 PM E DT Body Mass Index 28.6 11/25/2019 12:58 PM EDT Plan of Treatment Health Maintenance Due Date Last Done Comments DTaP,Tdap,and Td Vaccines (7 - Td or Tdap) 05/11/2021 05/12/2011, 02/09/2004, 05/15/2000, Additional history exists Influenza Vaccines (#1) 2023 12/06/2017 COVID-19 Vaccine ( season) 2023 Hepatitis B Vaccines Completed 1999, 1999, 1999 HIB Vaccines Completed 05/15/2000, 07/06, 1999 Pneumococcal Vaccine Completed 01/17/2002, 1999, 1999 MMR Vaccines Completed 04/03/2003, 01/18/2000 IPV Vaccines Completed 02/09/2004, 10/06, 1999, Additional history exists Varicella Vaccines Completed 12/17/2008, 01/18/2000 HPV Vaccines Completed 07/16/2014, 0502/2013, 05/30/2012 Meningococcal Vaccine Completed 07/19/2015, 012 Hepatitis A Vaccines Completed 01/31/2018, 01/06/20 17 Men B Vaccine Aged Out No longer elig ible based on patient's age to complete this topic Procedures * Due to [place] state law, this organization might not be sharing sensitive test results. Procedure Name Priority Date/Time Associated Diagnosis Comments CHLAMYDIA AND GONORRHEA, AMPLIFIED Routine 08/07/2019 4:05 PM EDT from Last 3 Months or Most Recently Relevant to Health Maintenance Results * Due to [place] state law, this organization might not be sharing sensitive test results. * Chlamydia and Gonorrhoea, Amplified (08/07/2019 4:05 PM EDT) Chlamydia Trachomatis, DNA Probe NEGATIVE (NEG) [facility] Comment: No Chlamydia Trachomatis RNA detected in this patient's sample ? (REFERENCE RANGE/NORMAL VALUE: NOT DETECTED) ? Note: This test uses chief lock operator- mediated amplification method to detect rRNA from C. Trachomatis URINE GC AMP PROBE NEGATIVE (NEG) [facility] Comment: No Neisseria Gonorrhoeae RNA detected in this patient's sample ? (REFERENCE RANGE/NORMAL VALUE: NOT DETECTED) ? NOTE: This test uses chief lock operator-mediated amplification method to detect rRNA from N.Gonorrhoeae. A negative result does not preclude infection. In the case of a negative urine result, testing of an endocervical(female) or urethral (male) specimen is recommended if there is high clinical suspicion of infection. Due to very high sensitivity of Nucleic Acid Amplification Test, false positive results may occur. Therefore, specimen handling is extremely important. In patients in whom the disease is unlikely, additional sample for testing should be considered after an initial positive result. The performance characteristics of this test have not been evaluated in children. The Aptima Combo2 assay is not intended for the evaluation of suspected sexual abuse or for other medico-legal indications. The ordering provider should assess if the patient had consensual sex without risk of sexual abuse. Consult the [facility] if needed. Contact phone number . Therapeutic failure or success cannot be determined with the Aptima Combo2 assay since nucleic acid may persist following appropriate antimicrobial therapy. The Centers for Disease Control and Prevention (CDC) recommends confirmatory retesting using culture or a different nucleic acid amplification test when positive results occur, if indicated. Testing performed or reported by [facility], a Service of [facility], [address] [place] [address] Neri Giron MD, Roofing Layer 08/07/2019 4:05 PM EDT 08/07/2019 9:21 PM EDT us Khloe Soler MD LAB MICROBIOLOGY - GENERAL ORDER RIGOBERTO Final Result [facility] from Last 3 Months or Most Recently Relevant to Health Maintenance Insurance [facility] NON PCC
--- OUTSIDE RECORDS SUMMARY | 2024-04-11 17:33 | XMS_ITS | Encounter Summary ---
Author Organization [facility] Address [address] [place] [phone] Phone Care Team Providers Care Photoengraving Photographer Name Role Phone Khloe Soler MD Primary Care Provider [phone] Encounter Details Date Type Department Care Team (Late st Contact Info) Description 06/24/2017 Conversion Encounter [facility] [address] [place] [address] Social History Tobacco Use Types Packs/Day Years Used Date Smoking Tobacco: Never Assessed Comments Unknown Sex and Gender Information Value Date Recorded Sex Assigned at Not on file Legal Sex Female 6:21 PM EDT Gender Identity Not on file Sexual Orientation Not on file documented as of this encounter Plan of Treatment Not on file documented as of this encounter Visit Diagnoses Not on filedocumented in this encounter Care Teams Photoengraving Photographer Relationship Specialty Start Date End Date Khloe Soler MD [address] [place] [address] PCP - General Pediatrics 08/02/17 11/07/23 documented as of this encounter
== END 2024-04-11 09:19 | disposition home or self-care (01) ==
LOC: HO.LAB 09:18
PROVIDERS: PCP Family Medicine; Visit Provider Family Medicine
DX: Z13.89 Encounter for screening for other disorder (principal)

== ENCOUNTER 2024-04-14 12:17 | Outpatient (REF) | payer OTHER, SELFPAY ==
--- OUTSIDE RECORDS SUMMARY | 2024-04-14 13:52 | XMS_ITS | Clinical Summary ---
Author Organization [facility] Address [address] [place] [address] Phone Care Team Providers Care Direct Service Worker Name Role Phone Unavailable Primary Care Provider [...] morning dose and follow up at upcoming [facility] next month Dysmenorrhea 01/05/2017 Generalized anxiety disorder 01/05/2017 Overview (09/04/2019): [facility]2013, didn't continue. [facility] referral 08/18 for oppositional behavior and anxiety as well as substance abuse and stealing. changed to [facility] for counselling - Luis Daniel Luna [facility] 08/2019, consideration to change diagnosis to borderline disorder Assessment & Plan (10/24/2018 2:54 PM EDT): No current issues with anxiety. Recognizes now how external factors are playing a role in current motivation High triglycerides 07/19/2015 Overview (02/14/2018): Lipid panel, metabolic panel and TFTs ordered 01/22,not done Resolved Problems Problem Noted Date Diagnosed Date Resolved Date Pediatric body mass index (B DE) of greater than or equal to 95th [...] Father's Sister Alive Maternal Grandfather Maternal Grandmother [place], aor tic dissection Mother Alive Paternal Grandfather [...] complete this topic Procedures * Due to [place] state law, this organization might not be sharing sensitive test results. Procedure Name Priority Date/Time Associated Diagnosis Comments CHLAMYDIA AND GONORRHEA, AMPLIFIED Routine 08/07/2019 4:05 PM EDT from Last 3 Months or Most Recently Relevant to Health Maintenance Results * Due to [place] state law, this organization might not be sharing sensitive test results. * Chlamydia and Gonorrhoea, Amplified (08/07/2019 4:05 PM EDT) Chlamydia Trachomatis, DNA Probe NEGATIVE (NEG) [facility] Comment: No Chlamydia Trachomatis RNA detected in this patient's sample ? (REFERENCE RANGE/NORMAL VALUE: NOT DETECTED) ? Note: This test uses court advocate- mediated amplification method to detect rRNA from C. Trachomatis URINE GC AMP PROBE NEGATIVE (NEG) [facility] Comment: No Neisseria Gonorrhoeae RNA detected in this patient's sample ? (REFERENCE RANGE/NORMAL VALUE: NOT DETECTED) ? NOTE: This test uses court advocate-mediated amplification method to detect rRNA from N.Gonorrhoeae. [...] without risk of sexual abuse. Consult the [facility] if needed. Contact phone number . Therapeutic failure or success cannot be determined with the Aptima Combo2 assay since nucleic acid may persist following appropriate antimicrobial therapy. The Centers for Disease Control and Prevention (CDC) recommends confirmatory retesting using culture or a different nucleic acid amplification test when positive results occur, if indicated. Testing performed or reported by [facility], a Service of [facility], [address] [place] [address] Neri Giron MD, Car Inspection And Repair Manager 08/07/2019 4:05 PM EDT 08/07/2019 9:21 PM EDT us Khloe Soler MD LAB MICROBIOLOGY - GENERAL ORDER RIGOBERTO Final Result [facility] from Last 3 Months or Most Recently Relevant to Health Maintenance Insurance [facility] NON PCC
--- OUTSIDE RECORDS SUMMARY | 2024-04-14 13:52 | XMS_ITS | Encounter Summary ---
Author Organization [facility] Address [address] [place] [address] Phone Care Team Providers Care Sec Accountant Name Role Phone Khloe Soler MD Primary Care Provider [phone] Encounter Details Date Type Department Care Team (Late st Contact Info) Description 06/24/2017 Conversion Encounter [facility] [address] [place] [address] Social History Tobacco Use Types Packs/Day Years [...] on filedocumented in this encounter Care Teams Sec Accountant Relationship Specialty Start Date End Date Khloe Soler MD [address] [place] [address] PCP - General Pediatrics 08/02/17 11/07/23 documented as of this encounter
== END 2024-04-14 12:18 | disposition home or self-care (01) ==
LOC: HO.LNP 12:17
PROVIDERS: Visit Provider Family Medicine
DX: Z13.89 Encounter for screening for other disorder (principal)